=== PATIENT | female | born 1990 | race Caucasian/White ===

== ENCOUNTER 2019-06-08 11:46 | Inpatient (IN) | payer OTHER ==
[2019-06-08] VITALS (20 sets, daily range): BP systolic 74–141; BP diastolic 47–90
[~2019-06-08] VITALS: Ht 162.6 cm; Wt 42.6 kg
[2019-06-08] MEDS ORDERED: IV NS 0.9% 1,000 ML BAG IV ONE ×5 (12:00→16:30)
[2019-06-08] MEDS ORDERED: LORAZEPAM INJ 2 MG/ML VIAL IVP ONE (12:00)
[2019-06-08] MEDS ORDERED: HALOPERIDOL LACTATE INJ 5 MG/ML VIAL IM ONE (12:00)
[2019-06-08] MEDS ORDERED: diphenhydrAMINE HCL 50 MG/ML VIAL IV ONE (12:00)
--- NOTE | 2019-06-08 12:01 | NUR ---
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
[2019-06-08] MEDS ORDERED: HALOPERIDOL LACTATE INJ 5 MG/ML VIAL ONE ×2 (12:09→12:14)
[2019-06-08] MEDS ORDERED: diphenhydrAMINE HCL 50 MG/ML VIAL ONE ×2 (12:09→12:14)
[2019-06-08] MEDS ORDERED: LORAZEPAM INJ 2 MG/ML VIAL ONE ×2 (12:09→12:14)
[2019-06-08 12:11] LABS: BASOPHILS # (AUTO) 0.1 /CMM (0.0-0.2); BASOPHILS % (AUTO) 0.4 % (0.0-2.0); EOSINOPHILS % (AUTO) 0.1 % (0.0-6.0); HEMATOCRIT 47 % (33-45); HEMOGLOBIN 13.6 g/dL (11.5-14.8); LYMPHOCYTES # (AUTO) 3.2 /CMM (0.8-4.8); LYMPHOCYTES % (AUTO) 14.7 % (20.0-44.0); MEAN CORPUSCULAR HGB CONC 29 g/dl (31.0-36.0); MEAN CORPUSCULAR VOLUME 103 fL (82-100); MONOCYTES # (AUTO) 1.1 /CMM (0.1-1.30); MONOCYTES % (AUTO) 5.1 % (2.0-12.0); NEUTROPHILS # (AUTO) 17.5 /CMM (1.8-8.9); NEUTROPHILS % (AUTO) 79.7 % (43.0-81.0); PLATELET COUNT (AUTO) 628 /CMM (150-450); RED BLOOD CELL COUNT(AUTO) 4.59 MIL/uL (4.0-5.2); WHITE BLOOD COUNT (AUTO) 21.9 K/uL (4.3-11.0)
--- NOTE | 2019-06-08 12:31 | NUR ---
unable to start a line; all medications given IM- see EMAR Dr. Morocho is aware - okay to GIVE all medications - ativan, haldol, and benadryl IM
[2019-06-08 13:15] LABS: APPEARANCE,URINE Clear (CLEAR); BILIRUBIN,URINE Negative (NEGATIVE); BLOOD, URINE Small Ery/uL (NEGATIVE); COLOR,URINE Yellow (YELLOW); KETONES,URINE >=160 (NEGATIVE); LEUKOCYTE ESTERASE ,URINE Negative (NEGATIVE); NITRITE, URINE Negative (NEGATIVE); PROTEIN,URINE 30 mg/dl (NEGATIVE); UGLUCOSE 500 MG/DL mg/dL (NEGATIVE); UROBILINOGEN,URINE 0.2 EU/dL (0.2)
[2019-06-08 13:30] LABS: BACTERIA,URINE None seen /HPF (None Seen); RBC,URINE 0-2 /HPF (0-2); SQUAMOUS EPITHELIAL CELL,UR Few /HPF (None Seen)
[2019-06-08 13:40] LABS: ALANINE AMINOTRANSFERASE 175 U/L (12-78); ALBUMIN 4.2 g/dL (3.4-5.0); ALCOHOL, BLOOD < 3 mg/dL (0-0); ALKALINE PHOSPHATASE 225 U/L (46-116); ASPARTATE AMINOTRANSFERASE 179 U/L (15-37); BILIRUBIN,DIRECT 0.1 mg/dL (0.0-0.2); BILIRUBIN,TOTAL 0.6 mg/dL (0.2-1.0); CALCIUM, SERUM 9.8 mg/dL (8.5-10.1); CHLORIDE 91 mmol/L (98-107); CREATININE 1.3 mg/dL (0.6-1.3); SALICYLATE 8.5 mg/dL (2.8-20.0); SODIUM SERUM 133 mmol/L (136-145); TOTAL PROTEIN, SERUM 8.8 g/dL (6.4-8.2); UREA NITROGEN, BLOOD 28 mg/dL (7-18)
[2019-06-08 13:41] LABS: ACETAMINOPHEN 0 ug/ml (10-30)
[2019-06-08 13:44] LABS: GLUCOSE 900 mg/dL (74-106); POTASSIUM 6.9 mmol/L (3.5-5.1)
--- NOTE | 2019-06-08 13:44 | NUR ---
marketing services coordinator consult requested for overdose. SW attempted to meet with pt but pt unable to cooperate during this time. SW will reattempt to asses pt at a later time.
[2019-06-08 13:45] LABS: CARBON DIOXIDE 0 mmol/L (21-32)
[2019-06-08] MEDS ORDERED: ALBUTEROL FS 2.5 MG/3 ML VIAL.NEB ONE (13:59)
--- NOTE | 2019-06-08 13:59 | NUR ---
CALLED FOR ICU BED AND PICC / MID LINE
[2019-06-08] MEDS ORDERED: INSULIN REGULAR, HUMAN 100 UNIT/ML 10 ML VIAL IV ONE (14:00)
[2019-06-08] MEDS ORDERED: INSULIN REGULAR, HUMAN 100 UNIT in IV NS 0.9% 99 ML IV PRN ×4 (14:00→14:30)
[2019-06-08] MEDS ORDERED: SODIUM BICARBONATE SYR 50 MEQ/50 ML DISP.SYRIN IV ONE (14:00)
[2019-06-08] MEDS ORDERED: ALBUTEROL FS 2.5 MG/3 ML VIAL.NEB NEB ONE (14:00)
[2019-06-08] MEDS ORDERED: SODIUM BICARBONATE SYR 50 MEQ/50 ML DISP.SYRIN ONE (14:10)
[2019-06-08] MEDS ORDERED: INSULIN REGULAR, HUMAN 100 UNIT/ML 10 ML VIAL ONE (14:15)
[2019-06-08] MEDS ORDERED: IV NS 0.9% 1,000 ML IV PRN (14:29)
[2019-06-08] MEDS ORDERED: MAGNESIUM HYDROXIDE 30 ML UDC PO PRN (14:30)
[2019-06-08] MEDS ORDERED: Z GUARD REMEDY 2 OZ OINT TP PRN (14:30)
[2019-06-08] MEDS ORDERED: ONDANSETRON HCL/PF 4 MG/2 ML VIAL IVP PRN (14:30)
[2019-06-08] MEDS ORDERED: MAG HYDROX/AL HYDROX/SIMETH 30 ML UDC PO PRN (14:30)
[2019-06-08 15:08] LABS: ABG BASE EXCESS -30.5 mmol/L; ABG OXYGEN SATURATION 97.7 % (92.0-98.5); ABG PCO2 8.2 mmHg (35.0-45.0); ABG PH 6.859 (7.350-7.450); ABG PO2 177.2 mmHg (75.0-100.0); COHb 0.3 % (0.5-1.5); MetHb 0.4 % (0.0-1.5); SITE, ABG Right Radial; VENT MODE, BG ROOM AIR
--- NOTE | 2019-06-08 15:15 | NUR ---
ICU/RN: Pt received from ER via roxanne, lethargic, confused, unable to follow commands. Hypothermic at 83.4F. Warming blanket placed. Pending PICC insertion. New IV #22 inserted LFA. R inguinal IV patent and intact, IV bolus ongoing, insulin drip at 7 units per hour. SR on monitor. Safety measures in place. Will continue to monitor.
--- NOTE | 2019-06-08 15:21 | NUR ---
pt transported to icu
--- NOTE | 2019-06-08 16:00 | NUR ---
ICU/RN: Dr Dewey notified of pt admission in ICU. Informed of 1600 accucheck reading as "HI" indicating blood glucose level >600mg/dl. Per MD, start insulin drip at 10unit/hr, "I will be there to see the patient shortly."
[2019-06-08] MEDS ORDERED: BLOOD SUGAR DIAGNOSTIC 1 EACH STRIP IN ONE (17:00)
--- NOTE | 2019-06-08 17:00 | NUR ---
ICU/RN: Dr Howard at bedside. Updated on pt status, unable to administer insulin drip dt lack of IV access; pending IV bolus, 1600 IVPBs, multiple IV attempts performed by ICU RNs still awaiting PICC line insertion, ETA 1800. Relayed critical labs to MD, requiring stat IVP Bicarb x2 amps, initiation of bicarb drip. Pt increasingly restless and agitated. Dr Howard requested ER MD to insert central line, awaiting arrival.
[2019-06-08] MEDS ORDERED: SODIUM BICARBONATE SYR 50 MEQ/50 ML DISP.SYRIN IV STA (17:03)
[2019-06-08] MEDS: Sodium Bicarbonate 100 MEQ in IV D5/ 0.9% NACL 1,000 ML IV PRN (17:53)
[2019-06-08] MEDS: LEVOFLOXACIN 750 MG /D5W 150ML 750 MG in PREMIX 1 EA IV SCH (17:53)
[2019-06-08] MEDS: Folic acid 1 MG in IV D5W 50 ML IV SCH (17:54)
[2019-06-08] MEDS: Thiamine 100 MG in IV D5W 50 ML IV SCH (17:54)
--- NOTE | 2019-06-08 18:15 | NUR ---
ICU/RN: Pt s/p R femoral central line insertion by ER Dr Aquino. Required 3 RN assist due to pt agitation. SBP marginal in 90's. Insulin drip resumed. Medications administered late, MD aware.
[2019-06-08] MEDS: BLOOD SUGAR DIAGNOSTIC 1 EACH STRIP IN SCH ×5 (19:07→23:00)
--- NOTE | 2019-06-08 19:29 | NUR ---
agricultural services director notes paged epic occupational health manager , spoke with debi regarding orders , awaiting for call back
[2019-06-08] MEDS: HALOPERIDOL LACTATE INJ 5 MG/ML VIAL IV PRN (19:46)
[2019-06-08] MEDS: LORAZEPAM INJ 2 MG/ML VIAL IV PRN (20:34)
[2019-06-08 20:44] LABS: ALBUMIN 2.9 g/dL (3.4-5.0); BILIRUBIN,TOTAL 0.4 mg/dL (0.2-1.0); CALCIUM, SERUM 7.7 mg/dL (8.5-10.1); CREATININE 1.4 mg/dL (0.6-1.3); POTASSIUM 3.4 mmol/L (3.5-5.1); TOTAL PROTEIN, SERUM 6.3 g/dL (6.4-8.2)
[2019-06-08 20:46] LABS: ALBUMIN 2.9 g/dL (3.4-5.0); BILIRUBIN,DIRECT 0.1 mg/dL (0.0-0.2); BILIRUBIN,TOTAL 0.4 mg/dL (0.2-1.0); TOTAL PROTEIN, SERUM 6.3 g/dL (6.4-8.2)
[2019-06-08] MEDS ORDERED: POTASSIUM PHOSPHATE MM 15 MMOL in IV D5W 250 ML IV ONE (22:00)
[2019-06-08 22:46] LABS: ABG BASE EXCESS -15.3 mmol/L; ABG OXYGEN SATURATION 96.3 % (92.0-98.5); ABG PCO2 16.8 mmHg (35.0-45.0); ABG PH 7.321 (7.350-7.450); ABG PO2 93.9 mmHg (75.0-100.0); AaDO2 35.7 mmHg; COHb 0.3 % (0.5-1.5); MetHb 0.4 % (0.0-1.5); O2Hb 95.6 % (94.0-97.0); SITE, ABG Right Radial; VENT MODE, BG RA
[2019-06-08] MEDS: POTASSIUM PHOSPHATE MM 7.5 MMOL in IV D5W 100 ML IV SCH (23:00)
[2019-06-09] VITALS (24 sets, daily range): BP systolic 101–135; BP diastolic 54–86
[2019-06-09] MEDS ORDERED: DEXTROSE 50%-WATER 50 ML DISP.SYRIN IV PRN (00:30)
[2019-06-09] MEDS ORDERED: INSULIN REGULAR, HUMAN 100 UNIT/ML 3 ML VIAL SQ PRN (00:30)
[2019-06-09] MEDS: HALOPERIDOL LACTATE INJ 5 MG/ML VIAL IV PRN ×2 (00:57→15:10)
[2019-06-09] MEDS: LORAZEPAM INJ 2 MG/ML VIAL IV PRN ×3 (02:22→21:25)
[2019-06-09] MEDS: Sodium Bicarbonate 100 MEQ in IV D5/ 0.9% NACL 1,000 ML IV PRN (02:28)
[2019-06-09] MEDS: POTASSIUM PHOSPHATE MM 7.5 MMOL in IV D5W 100 ML IV SCH (02:34)
[2019-06-09 04:32] LABS: BASOPHILS % (AUTO) 0.2 % (0.0-2.0); HEMATOCRIT 34 % (33-45); HEMOGLOBIN 10.7 g/dL (11.5-14.8); LYMPHOCYTES # (AUTO) 0.6 /CMM (0.8-4.8); LYMPHOCYTES % (AUTO) 3.4 % (20.0-44.0); MEAN CORPUSCULAR HGB CONC 32 g/dl (31.0-36.0); MEAN CORPUSCULAR VOLUME 94 fL (82-100); MONOCYTES # (AUTO) 0.5 /CMM (0.1-1.30); MONOCYTES % (AUTO) 2.7 % (2.0-12.0); NEUTROPHILS # (AUTO) 17.6 /CMM (1.8-8.9); NEUTROPHILS % (AUTO) 93.7 % (43.0-81.0); PLATELET COUNT (AUTO) 384 /CMM (150-450); RED BLOOD CELL COUNT(AUTO) 3.61 MIL/uL (4.0-5.2); WHITE BLOOD COUNT (AUTO) 18.7 K/uL (4.3-11.0)
[2019-06-09 04:54] LABS: ALBUMIN 2.9 g/dL (3.4-5.0); BILIRUBIN,TOTAL 0.6 mg/dL (0.2-1.0); CALCIUM, SERUM 8.3 mg/dL (8.5-10.1); CREATININE 1.1 mg/dL (0.6-1.3); MAGNESIUM 2.1 mg/dL (1.8-2.4); PHOSPHORUS 4.3 mg/dL (2.5-4.9); POTASSIUM 4.8 mmol/L (3.5-5.1); TOTAL PROTEIN, SERUM 6.2 g/dL (6.4-8.2)
[2019-06-09 05:52] LABS: ABG BASE EXCESS -22.9 mmol/L; ABG PCO2 8.1 mmHg (35.0-45.0); ABG PH 7.175 (7.350-7.450); ABG PO2 129.7 mmHg (75.0-100.0); COHb 0.3 % (0.5-1.5); MetHb 0.7 % (0.0-1.5); SITE, ABG Right Radial; VENT MODE, BG 3 L NC
[2019-06-09] MEDS ORDERED: BLOOD SUGAR DIAGNOSTIC 1 EACH STRIP IN SCH (06:00)
[2019-06-09] MEDS ORDERED: INSULIN REGULAR, HUMAN 100 UNIT in IV NS 0.9% 99 ML IV PRN ×4 (06:00)
[2019-06-09] MEDS: BLOOD SUGAR DIAGNOSTIC 1 EACH STRIP IN SCH ×18 (06:16→23:00)
[2019-06-09] MEDS ORDERED: SODIUM BICARBONATE SYR 50 MEQ/50 ML DISP.SYRIN IV ONE (06:30)
[2019-06-09 08:02] LABS: CALCIUM, SERUM 8.2 mg/dL (8.5-10.1); CREATININE 1.3 mg/dL (0.6-1.3); POTASSIUM 3.7 mmol/L (3.5-5.1)
[2019-06-09] MEDS ORDERED: Sodium Bicarbonate 100 MEQ in IV D5W 1,000 ML IV PRN ×3 (08:30→11:00)
--- NOTE | 2019-06-09 08:30 | NUR ---
ICU/RN: Dr Howard, updated on overnight events; insulin drip restarted at 0600; pt does not have insulin pump at bedside. Critical lab values discussed with new orders. Remains restless with periods of agitation. Restraint care rendered.
[2019-06-09 11:14] LABS: ABG BASE EXCESS -6.7 mmol/L; ABG OXYGEN SATURATION 96.2 % (92.0-98.5); ABG PCO2 26.4 mmHg (35.0-45.0); ABG PH 7.412 (7.350-7.450); ABG PO2 91.6 mmHg (75.0-100.0); AaDO2 76.9 mmHg; COHb 0.3 % (0.5-1.5); MetHb 0.4 % (0.0-1.5); O2Hb 95.5 % (94.0-97.0); SITE, ABG Right Radial; VENT MODE, BG N/C
[2019-06-09] MEDS ORDERED: IV D5W 1,000 ML IV PRN (12:00)
--- NOTE | 2019-06-09 12:15 | NUR ---
ICU/RN: Dr Danyel rey; updated on pt status. Per MD d/c ford gtt, to adjust fluids.
[2019-06-09 12:40] LABS: CALCIUM, SERUM 8.4 mg/dL (8.5-10.1); CREATININE 1.1 mg/dL (0.6-1.3); POTASSIUM 3.5 mmol/L (3.5-5.1)
[2019-06-09 12:45] LABS: PHOSPHORUS 2.9 mg/dL (2.5-4.9)
[2019-06-09 12:51] LABS: MAGNESIUM 2.2 mg/dL (1.8-2.4)
--- NOTE | 2019-06-09 13:45 | NUR ---
ICU/RN: Updated Dr Howard on latest labs. New orders noted and carried out.
[2019-06-09] MEDS: Potassium Chloride 40 MEQ in IV D5W 1,000 ML IV PRN ×2 (15:00→23:30)
--- NOTE | 2019-06-09 15:00 | NUR ---
ICU/RN: Pt awake, restless, screaming. Alert only to self. Restraint care and fall risk prevention implemented.
[2019-06-09] MEDS: LEVOFLOXACIN 750 MG /D5W 150ML 750 MG in PREMIX 1 EA IV SCH (15:17)
[2019-06-09 16:28] LABS: CALCIUM, SERUM 7.9 mg/dL (8.5-10.1); CREATININE 1.1 mg/dL (0.6-1.3); MAGNESIUM 1.9 mg/dL (1.8-2.4); PHOSPHORUS 3.4 mg/dL (2.5-4.9); POTASSIUM 3.5 mmol/L (3.5-5.1)
[2019-06-09] MEDS: Folic acid 1 MG in IV D5W 50 ML IV SCH (16:47)
[2019-06-09] MEDS: Thiamine 100 MG in IV D5W 50 ML IV SCH (16:54)
--- NOTE | 2019-06-09 18:30 | NUR ---
ICU/RN: Pt's ezioienshyla at bedside, attentive to pt. Per ezioienshyla, "I have her insulin pump with me, I'm not sure what the settings are." Pump noted to be from [employer] with lispro vial. Ezioienshyla requested to hold on to pump until MD orders its continuation.
--- NOTE | 2019-06-09 19:16 | NUR ---
RN OPENING NOTES RECEIVED PATIENT IN BED SLEEPING, BUT EASY TO AROUSE. PATIENT LETHARGIC AND RESTLESS. ON BILATERAL SOFT WRIST RESTRAINTS NOTED FOR PT SAFETY. ON TELE MONITOR ST WITH HR 120'S. ON OXYGEN 2L VIA NASAL CANNULA, SATURATING 99%, NO SOB OR RESPIRATORY DISTRESS NOTED. IV SITES RIGHT INGUINAL, AND RIGHT FEM TLC BOTH FLUSHING AND PATENT; IVF RUNNING ORDERED, INSULIN DRIP RUNNING AT 1.83 UNITS/HR. BLANCHARD CATH IN PLACE. SAFETY MEASURES IN PLACE; CALL LIGHT WITHIN REACH, SIDE RAILS UP X2, BED LOCKED AND IN LOW POSITION. WILL CONT TO MONITOR PATIENT CLOSELY.
[2019-06-09 20:26] LABS: CALCIUM, SERUM 8.1 mg/dL (8.5-10.1); CREATININE 1.1 mg/dL (0.6-1.3); MAGNESIUM 2.1 mg/dL (1.8-2.4); PHOSPHORUS 2.8 mg/dL (2.5-4.9); POTASSIUM 3.6 mmol/L (3.5-5.1)
[2019-06-10] VITALS (22 sets, daily range): BP systolic 103–141; BP diastolic 59–90
[2019-06-10] MEDS: BLOOD SUGAR DIAGNOSTIC 1 EACH STRIP IN SCH ×15 (00:02→22:10)
--- NOTE | 2019-06-10 00:48 | NUR ---
RN NOTES PATIENT URINE OUTPUT LOW; 40ML SINCE START OF SHIFT. NO DISTENSION ON ABDOMEN/BLADDER NOTED, BLANCHARD CATH FLUSHED AND NOTED INTACT. CELERY WRAPPER MD MADE AWARE, NO NEW ORDERS NOTED. WILL CONT TO MONITOR PT CLOSELY.
[2019-06-10 00:56] LABS: CALCIUM, SERUM 8.4 mg/dL (8.5-10.1); PHOSPHORUS 2.7 mg/dL (2.5-4.9); POTASSIUM 3.8 mmol/L (3.5-5.1)
[2019-06-10 05:07] LABS: CALCIUM, SERUM 8.9 mg/dL (8.5-10.1); MAGNESIUM 2.1 mg/dL (1.8-2.4); PHOSPHORUS 2.3 mg/dL (2.5-4.9); POTASSIUM 3.9 mmol/L (3.5-5.1)
--- NOTE | 2019-06-10 07:15 | NUR ---
RN CLOSING NOTES PATIENT IN BED SLEEPING, BUT EASY TO AROUSE. PATIENT LETHARGIC AND RESTLESS. ON BILATERAL SOFT WRIST RESTRAINTS, PULSES CHECKED PER PROTOCOL, STRONG RADIAL PULSES NOTED. ON TELE MONITOR ST WITH HR 100'S. ON OXYGEN 2L VIA NASAL CANNULA, SATURATING 100%, NO SOB OR RESPIRATORY DISTRESS NOTED. IV SITES RIGHT INGUINAL, AND RIGHT FEM TLC BOTH FLUSHING AND PATENT; IVF RUNNING ORDERED, INSULIN DRIP RUNNING AT 1.65 UNITS/HR. BLANCHARD CATH IN PLACE, DRAINING YELLOW URINE. ALL MD ORDERS ATTENDED, ALL NEEDS ANTICIPATED AND MET. SAFETY MEASURES MAINTAINED; CALL LIGHT WITHIN REACH, SIDE RAILS UP X2, BED LOCKED AND IN LOW POSITION. WILL CONT TO MONITOR PATIENT CLOSELY. WILL ENDORSE TO AM RN FOR DENNY.
--- NOTE | 2019-06-10 07:30 | NUR ---
HEALTH INFORMATION CLERK INITIAL NOTE RECEIVED PATIENT ASLEEP, LETHARGIC, TOO TIRED TO ANSWER QUESTIONS. NO S/S OF PAIN OR DISCOMFORT. NO RESPIRATORY DISTRESS NOTED. SKIN WARM AND DRY TO TOUCH. ON INSULIN DRIP AT 1.65UNIT/HR AND IVF. F/C PATENT, AND DRAINING BY GRAVITY. BILATERAL SOFT RESTRAINTS IN PLACE, CIRCULATION CHECKED. HOB ELEVATED. SIDE RAILS UP AND LOCKED. BED KEPT AT LOWEST POSITION. WILL CONTINUE TO MONITOR.
[2019-06-10] MEDS: Potassium Chloride 40 MEQ in IV D5W 1,000 ML IV PRN (08:21)
[2019-06-10 08:32] LABS: CALCIUM, SERUM 8.4 mg/dL (8.5-10.1); CREATININE 0.9 mg/dL (0.6-1.3); MAGNESIUM 2.1 mg/dL (1.8-2.4); PHOSPHORUS 2.2 mg/dL (2.5-4.9); POTASSIUM 4.7 mmol/L (3.5-5.1)
[2019-06-10] MEDS: INSULIN GLARGINE, 100 UNIT/ML CARTRIDGE SQ SCH (09:30)
[2019-06-10] MEDS ORDERED: INSULIN GLARGINE, 100 UNIT/ML CARTRIDGE SQ ONE (09:30)
--- NOTE | 2019-06-10 09:30 | NUR ---
MAGNETIZER NOTE BIPAP REMOVED AND PLACED ON 3LPMO2 VIA NC. ATE 50% OF BREAKFAST. WILL CONTINUE TO MONITOR. Addendum: 06/10/19 at 1751 by ERIS EASTON RN WRONG PATIENT
--- NOTE | 2019-06-10 09:31 | NUR ---
ROTARY CUTTER NOTE SEE AND EXAMINED BY DR. LOERA WITH ORDER TO GIVE 16UNITS LANTUS AND STOP INSULIN DRIP ONE HOUR AFTER AND D/C IVF, START WITH D5W AT 125ML/HR. D/C BMP Q4H AND CHECK NEXT BMP IN AM. PLACE PATIENT ON AGGRESSIVE SLIDING SCALE AND DIET. HOLD OFF GIVING ANY ATIVAN TO PATIENT. NOTED. WILL CONTINUE TO MONITOR.
[2019-06-10] MEDS ORDERED: *INSULIN REGULAR(HUMULIN R)HUM 100 UNIT/ML VIAL SQ PRN (10:00)
[2019-06-10] MEDS ORDERED: DEXTROSE 50%-WATER 50 ML DISP.SYRIN IV PRN (10:00)
[2019-06-10] MEDS ORDERED: POTASSIUM PHOSPHATE MM 7.5 MMOL in IV D5W 100 ML IV SCH (10:00)
[2019-06-10] MEDS: IV D5W 1,000 ML IV PRN ×2 (10:12→18:35)
[2019-06-10 10:16] LABS: BASOPHILS % (AUTO) 0.3 % (0.0-2.0); EOSINOPHILS % (AUTO) 0.1 % (0.0-6.0); HEMATOCRIT 31 % (33-45); HEMOGLOBIN 10.3 g/dL (11.5-14.8); LYMPHOCYTES # (AUTO) 2.4 /CMM (0.8-4.8); LYMPHOCYTES % (AUTO) 18.5 % (20.0-44.0); MEAN CORPUSCULAR HGB CONC 33 g/dl (31.0-36.0); MEAN CORPUSCULAR VOLUME 90 fL (82-100); MONOCYTES # (AUTO) 0.6 /CMM (0.1-1.30); MONOCYTES % (AUTO) 4.3 % (2.0-12.0); NEUTROPHILS % (AUTO) 76.8 % (43.0-81.0); PLATELET COUNT (AUTO) 313 /CMM (150-450); RED BLOOD CELL COUNT(AUTO) 3.47 MIL/uL (4.0-5.2); WHITE BLOOD COUNT (AUTO) 13.1 K/uL (4.3-11.0)
--- NOTE | 2019-06-10 11:37 | NUR ---
ELIGIBILITY COUNSELOR NOTE PATIENT AWAKE A/OX4, SLEEPY, STATES SHES HUNGRY. RESTRAINTS REMOVED AT THIS TIME. WILL CLOSELY MONITORED.
[2019-06-10] MEDS: INSULIN REGULAR, HUMAN 100 UNIT/ML 3 ML VIAL SQ PRN ×3 (12:20→22:12)
--- NOTE | 2019-06-10 12:33 | NUR ---
SENIOR INDUSTRIAL ENGINEER NOTE PATIENT REQUESTED TO BE PLACED BACK ON BIPAP, STATES HE HAS SOB. WILL CONTINUE TO MONITOR. Addendum: 06/10/19 at 1750 by ERIS EASTON RN DELETE, WRONG PATIENT
[2019-06-10] MEDS: Thiamine 100 MG in IV D5W 50 ML IV SCH (16:52)
[2019-06-10] MEDS: LEVOFLOXACIN 750 MG /D5W 150ML 750 MG in PREMIX 1 EA IV SCH (16:52)
[2019-06-10] MEDS: Folic acid 1 MG in IV D5W 50 ML IV SCH (16:52)
[2019-06-10] MEDS: GLUCERNA SHAKE 237 ML CAN PO SCH (17:39)
--- NOTE | 2019-06-10 17:42 | NUR ---
VACUUM PLASTIC FORMING MACHINE OPERATOR NOTE PATIENT ATE 25% OF DINNER, FINISHED GLUCERNA AND WENT BACK TO SLEEP. WILL CONTINUE TO MONITOR.
--- NOTE | 2019-06-10 19:45 | NUR ---
BINDERY OPERATOR CLOSING NOTE PATIENT MORE AWAKE, HAD LARGE BOWEL MOVEMENT. NO DISTRESS NOTED. KEPT PATIENT CLEAN AND DRY. ALL NEEDS ANTICIPATED AND MET. IVF RUNNING. HOB ELEVATED. SIDE RAILS UP AND LOCKED. BED KEPT AT LOWEST POSITION. CALL LIGHT KEPT WITHIN EASY REACH. CONTINUITY OF CARE ENDORSED TO PM NURSE.
--- NOTE | 2019-06-10 20:00 | NUR ---
WINDOW SHADE CLOTH SEWER NOTE RECEIVED PT IN BED SLEEPING ON AND OFF, DEPRESSED. A/O X 4, NO SOB, NO DISTRESS OR DISCOMFORT NOTED. DENIES PAIN. ON 2L VIA N/C O2 SAT 98%. F/C INTACT AND PATENT DRAINING YELLOWISH, CLEAR URINE. ON TELE MONITOR SR. IVF D5W INFUSING AT 125 ML/HR, NO S/S OF INFILTRATION NOTED AT RT FEMORAL CATH. RT INGUINAL SL INTACT AND PATENT. ALL NEEDS ATTENDED. SIDE RAILS UP X 2 AND CALL LIGHT WITH IN REACH. VSS. CONTINUE TO MONITOR HER.
--- NOTE | 2019-06-10 21:00 | NUR ---
INTERNATIONAL REPRESENTATIVE NOTE PT TRANSFERRED TO MS 1 IN ROOM 119-2, NO DISTRESS OR DISCOMFORT NOTED. NO S/S OF PAIN. CONTINUE TO CARE FOR THE PT.
--- NOTE | 2019-06-11 | NUR ---
MS RN NOTE PT REFUSED PICTURES TAKEN OF HER WOUNDS. STATES "I WANT TO SLEEP, AND LEAVE ME ALONE". ALSO REFUSING TO REPOSITIONING AND LINEN CHANGE.
[2019-06-11 00:42] LABS: MAGNESIUM 1.5 mg/dL (1.8-2.4); PHOSPHORUS 1.4 mg/dL (2.5-4.9)
--- NOTE | 2019-06-11 01:12 | NUR ---
MS RN NOTE NOTED MAG LEVEL DROPPED TO 1.5 AND PHOS 1.4, DR ESTEVES INFORMED RECEIVED NEW ORDER, ORDER NOTED AND CARRIED OUT.
[2019-06-11] MEDS ORDERED: Magnesium 1GM/D5W 100ML PREMIX 200 ML IV ONE (01:19)
--- NOTE | 2019-06-11 01:28 | NUR ---
MS RN NOTE HUNGED 1 G OF MAG IVP ORDERED. WILL HUNG SECOND BAG AFTER FIRST ONE FINISHED.
[2019-06-11] MEDS ORDERED: Magnesium 1GM/D5W 100ML PREMIX PIGGYBACK IV ONE ×2 (01:30→19:00)
[2019-06-11] MEDS: IV D5W 1,000 ML IV PRN (03:35)
[2019-06-11 04:00] VITALS: BP 111/65
--- NOTE | 2019-06-11 04:00 | NUR ---
MS RN NOTE PT IN BED DROWSY, KEPT ON ASKING FOR ATIVAN. REMINDED PT THAT IT WILL MAKE HER MORE DROWSY. VSS. SNACKS GIVEN. PT STILL REFUSING TO REPOSITION AND LINEN CHANGE. CONTINUE TO MONITOR HER.
[2019-06-11] MEDS: LORAZEPAM INJ 2 MG/ML VIAL IV PRN ×3 (04:32→18:53)
--- NOTE | 2019-06-11 04:32 | NUR ---
MS PRITCHETT NOTE PT IS AWAKE. EATING SANDWICH. PLUS BECOMING MORE ANXIOUS, ATIVAN 2 MG IVP GIVEN. CONTINUE TO MONITOR HER. Addendum: 06/11/19 at 0436 by AARTI MERCER RN HELD THE ATIVAN, BECAUSE PT FALL BACK TO SLEEP.
[2019-06-11 05:04] LABS: MAGNESIUM 2.5 mg/dL (1.8-2.4); PHOSPHORUS 1.7 mg/dL (2.5-4.9)
--- NOTE | 2019-06-11 06:49 | NUR ---
MS RN NOTE PT IN BED, ASLEEP, EASILY AROUSABLE. NO DISTRESS OR DISCOMFORT NOTED. DENIES PAIN. NO ANXIETY OR BEHAVIOR ISSUE NOTED. SIDE RAILS UP X 2 AND CALL LIGHT WITHIN REACH. WILL ENDORSE TO DAY SHIFT NURSE FOR CONTINUE TO CARE.
--- NOTE | 2019-06-11 07:20 | NUR ---
RN OPENING NOTE RECEIVED PATIENT TRYING TO GET UP IN BED AND WALK. PATIENT IS ALERT WITH PERIODS OF CONFUSION. PATIENT STATED THAT SHE REMOVED HER BLANCHARD CATHETER BY HERSELF. ASSISTED PATIENT BACK TO BED WITH BED LOWERED TO LOWEST POSITION FOR SAFETY. BED ALARM IS TURNED ON. EXPLAINED THE RISKS OF GETTING UP AND WALKING WITHOUT CALLING FOR ASSISTANCE. CALL LIGHT IS WITHIN EASY REACH. WILL CONTINUE TO MONITOR.
[2019-06-11] MEDS: BLOOD SUGAR DIAGNOSTIC 1 EACH STRIP IN SCH ×4 (07:30→22:46)
--- NOTE | 2019-06-11 07:53 | NUR ---
MS/RN NOTES PATIENT REFUSED MORNING ACCUCHECK. EXPLAINED RISK AND BENEFITS X3. PATIENT STILL REFUSED X3. CONTINUES TO REMAIN IN STABLE. WILL CONTINUE TO MONITOR CLOSELY.
[2019-06-11] MEDS: GLUCERNA SHAKE 237 ML CAN PO SCH ×3 (07:55→16:48)
[2019-06-11 08:00] VITALS: BP 118/75
[2019-06-11 08:36] VITALS: BP 116/77
--- NOTE | 2019-06-11 08:44 | NUR ---
WOUND CARE CONSULT: PT SLEEPING SOUNDLY AT THIS TIME. WILL ATTEMPT TO SEE PT AT LATER TIME.
[2019-06-11] MEDS: INSULIN GLARGINE, 100 UNIT/ML CARTRIDGE SQ SCH ×2 (09:00→13:01)
[2019-06-11 09:02] LABS: PHOSPHORUS 1.9 mg/dL (2.5-4.9)
[2019-06-11] MEDS ORDERED: K PHOS NEUTRAL 250 MG TABLET PO ONE (11:00)
--- NOTE | 2019-06-11 11:27 | NUR ---
Social service consult requested by Dr. Howard for homeless and drug use. Pt. is a 29 year old female who was admitted to [facility] for DKA. Pt. was brought in by paramedics. Patient was found in the back of a motel altered and intoxicated. Patient was screaming and otherwise unable to give any history in the ED. Patient required sedation and restraint for patient safety and staff safety. SW met with the pt. bedside. Pt. is no longer on restraints. Pt. was alert and oriented x 3. Pt. had her eyes closed throughout the entire assessment. SW had to repeat questions several times for pt. to answer them. Pt. states she is homeless and has been for months. Pt. has a history of methamphetamines and heroin use and has been using for a "longtime." Pt. has a history of attending a drug rehab program but was not able to articulate as to when she attended the program. SW inquired with pt. if she would like [facility] placement upon discharge. Pt. replied, " I haven't figured that out yet." Pt. has a psychiatric diagnosis of Bipolar and is currently not taking any psychotropic medications. Pt. denies suicidal and homicidal ideations and visual/auditory hallucinations at this time. SW to discuss discharge plan again with the pt. tomorrow.
--- NOTE | 2019-06-11 11:30 | NUR ---
WOUND CARE: PT PRESENTS WITH INTACT SKIN AND DRY SCAB TO RT HAND, PRESENT ON ADMISSION. PT IS VERY THIN AND BONY. PT IS INDEPENDENT WITH BED MOBILITY AND CONTINENT AT THIS TIME. WILL SEE PRN. Addendum: 06/11/19 at 1137 by IVETTE MORENO WNDNU DRY ABRASION NOTED TO SCALP ALSO NOTED TO BE PRESENT ON ADMISSION.
[2019-06-11] MEDS: HALOPERIDOL LACTATE INJ 5 MG/ML VIAL IV PRN (12:27)
[2019-06-11] MEDS: INSULIN REGULAR, HUMAN 100 UNIT/ML 3 ML VIAL SQ PRN ×3 (12:31→22:49)
--- NOTE | 2019-06-11 13:04 | NUR ---
MS/RN NOTES PATIENT BS WAS 514 SECOND TIME DRAWING IT. REPORTED TO DR. LOERA, PER D/C D5W AND TO ADMINISTER THE PREVIOUSLY REFUSED LANTUS. SPOKE TO THE PATIENT. PATIENT COOPERATIVE TO TAKE THE LANTUS AT THIS TIME. PATIENT CONTINUES TO REMAIN IN STABLE CONDITION. WILL CONTINUE TO MONITOR CLOSELY.
[2019-06-11] MEDS: LEVOFLOXACIN 750 MG /D5W 150ML 750 MG in PREMIX 1 EA IV SCH (15:40)
[2019-06-11 16:00] VITALS: BP 125/70
[2019-06-11] MEDS: Folic acid 1 MG in IV D5W 50 ML IV SCH (16:16)
[2019-06-11] MEDS: Thiamine 100 MG in IV D5W 50 ML IV SCH (16:16)
[2019-06-11 17:41] LABS: MAGNESIUM 1.6 mg/dL (1.8-2.4); PHOSPHORUS 2.2 mg/dL (2.5-4.9)
--- NOTE | 2019-06-11 18:43 | NUR ---
MS/RN NOTES PAGED DR. LOERA AND RECEIVED A CALL BACK REGARDING THE PHOS AND MAG RESULTS. DR. LOERA ORDERED TO REPLACE MAG. ALL ORDERS NOTED AND CARRIED OUT. PATIENT CONTINUES TO REMAIN IN STABLE CONDITION. WILL CONTINUE TO MONITOR CLOSELY.
--- NOTE | 2019-06-11 18:52 | NUR ---
MS/RN CLOSING NOTES PATIENT CONTINUES TO REMAIN IN STABLE CONDITION THROUGHOUT THE SHIFT. PROVIDED COMFORT AND SAFETY. IV ACCESS INTACT AND PATENT. FLUSHING WELL. NO S/S OF INFECTION OR INFILTRATION. PATIENT ABLE TO TOLERATE MEALS AND MEDS WELL. ALL NEEDS ANTICIPATED. CALL LIGHT WITHIN REACHED. BED LOCKED AND IN LOWEST POSITION. WILL CONTINUE TO MONITOR CLOSELY. ENDORSED TO PM NURSE FOR DENNY.
[2019-06-11 20:00] VITALS: BP 105/52
--- NOTE | 2019-06-11 20:00 | NUR ---
MS RN NOTE PT IN BED ASLEEP, AROUSABLE. A/O X 3, NO SOB, NO DISTRESS OR DISCOMFORT NOTED. DENIES PAIN. RT INGUINAL SL INTACT AND PATENT AND RT FEMORAL 3 LUMEN CATH INTACT AND PATENT TKO. ALL NEEDS ATTENDED. SIDE RAILS UP X 2 AND CALL LIGHT WITHIN REACH. VSS. CONTINUE TO MONITOR HER.
[2019-06-11] MEDS: Magnesium 1GM/D5W 100ML PREMIX 100 ML IV SCH ×2 (20:10→21:14)
[2019-06-11 22:36] LABS: MAGNESIUM 2.6 mg/dL (1.8-2.4); PHOSPHORUS 2.7 mg/dL (2.5-4.9)
[2019-06-12] MEDS: LORAZEPAM INJ 2 MG/ML VIAL IV PRN (03:10)
--- NOTE | 2019-06-12 03:10 | NUR ---
MS RN NOTE PT BECOME ANXIOUS, GETTING OUT OF BED. ATIVAN 2 MG IVP GIVEN. CONTINUE TO MONITOR HER.
--- NOTE | 2019-06-12 03:40 | NUR ---
MS RN NOTE PT CALM DOWN AND FALL BACK TO SLEEP, AROUSABLE. CONTINUE TO MONITOR HER.
[2019-06-12 04:00] VITALS: BP 114/59
--- NOTE | 2019-06-12 06:32 | NUR ---
MS RN NOTE PT IN BED ASLEEP, AROUSABLE. NO DISTRESS OR DISCOMFORT NOTED. DENIES PAIN. NS TKO NO S/S OF INFILTRATION NOTED. KEPT HER DRY AND CLEAN. SIDE RAILS X 3 AND CALL LIGHT WITHIN REACH. WILL ENDORSE TO DAY SHIFT NURSE FOR CONTINUE TO CARE.
[2019-06-12] MEDS: BLOOD SUGAR DIAGNOSTIC 1 EACH STRIP IN SCH ×3 (07:35→17:34)
[2019-06-12] MEDS: GLUCERNA SHAKE 237 ML CAN PO SCH ×3 (07:38→17:35)
[2019-06-12 08:00] VITALS: BP 97/69
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
[2019-06-12] MEDS: INSULIN GLARGINE, 100 UNIT/ML CARTRIDGE SQ SCH (09:44)
[2019-06-12] MEDS: ACETAMINOPHEN 325 MG TABLET PO PRN ×2 (10:26→17:40)
[2019-06-12] MEDS ORDERED: THIAMINE HCL 100 MG TABLET PO SCH (11:00)
[2019-06-12] MEDS ORDERED: FOLIC ACID 1 MG TABLET PO SCH (11:00)
[2019-06-12] MEDS: INSULIN REGULAR, HUMAN 100 UNIT/ML 3 ML VIAL SQ PRN (11:51)
[2019-06-12 12:00] VITALS: BP 102/70
--- NOTE | 2019-06-12 12:00 | NUR ---
CHANEL met with the pt. again to discuss discharge plan. Per pt., she is having chest pain and is not sure as to where she is going to go. Pt. stated, " I need to first find out about my chest pain." SW informed pt. she will notify her nurse regarding her chest pain. Pt. states, she will go to the winter residential if needed or will " walk out of here." CHANEL gave pt. the [id number] [facility] program list. CHANEL to follow up with pt. again prior to discharge.
--- NOTE | 2019-06-12 12:19 | NUR ---
RN NOTE bg -[id number] ACCOUNTING DIRECTOR Brian aware, no new orders. insulin per sliding scale given.
[2019-06-12] MEDS: MORPHINE SULFATE INJ 2 MG/ML DISP.SYRIN IV PRN ×2 (12:26→15:49)
[2019-06-12 16:00] VITALS: BP 114/69
[2019-06-12] MEDS ORDERED: LEVOFLOXACIN (750 MG) 750 MG TABLET PO SCH (16:00)
--- NOTE | 2019-06-12 18:00 | NUR ---
rn note pt left AMA. YESY michelle signed. PT was upset that does not want adjust the pain regimen. MICHELLE Huertas aware, right triple lumen and femoral 20 g IV removed. belongings provided to pt. Addendum: 06/12/19 at 1940 by LETY DALE RN risks and benefits epalined, patient still refused to stay. [id number].
== END 2019-06-12 19:00 | disposition left against medical advice (07) | DRG 420 ==
LOC: EDSEX 11:47 → EDBD 11:47 → ER 11:47 → ICU 15:27 → MEDSG1 06-10 21:26
PROVIDERS: ADMIT Internal Medicine; ATTEND Hospitalist
DX: E10.10 Type 1 diabetes mellitus with ketoacidosis without coma (principal); N17.0 Acute kidney failure with tubular necrosis; E43 Unspecified severe protein-calorie malnutrition; G92 Toxic encephalopathy; E87.3 Alkalosis; E87.0 Hyperosmolality and hypernatremia; E86.1 Hypovolemia; F15.129 Other stimulant abuse with intoxication, unspecified; F11.929 Opioid use, unspecified with intoxication, unspecified; R74.0 Nonspecific elevation of levels of transaminase and lactic acid dehydrogenase [LDH]; E87.5 Hyperkalemia; Z68.1 Body mass index [BMI] 19.9 or less, adult; E88.09 Other disorders of plasma-protein metabolism, not elsewhere classified; Z91.11 Patient's noncompliance with dietary regimen; R07.81 Pleurodynia; Z59.0 Homelessness; Z91.14 Patient's other noncompliance with medication regimen
CPT/HCPCS: 36415; 36600; 71045-TC; 71250-TC; 80048-TC; 80053-TC; 80061-TC; 80076-TC; 80305; 81000-TC; 82803-TC; 82962-TC; 83605-TC; 83735-TC; 84100-TC; 84702-TC; 84703-TC; 85025-TC; A4216; A6403; C1751; G0378; G0480; J1200; J1630; J1815; J1956; J2060; J2270; J3411; J3475; J3480; J3490; J7030; J7042; J7050; J7060; J7070